=== PATIENT | female | born 1955 | race Hispanic/Latino ===

== ENCOUNTER 2017-06-13 07:11 | Day surgery (SDC) | payer OTHER ==
[2017-06-11 13:41] VITALS: BMI 18.6
[2017-06-13] MEDS ORDERED: Iohexol 240 (50 ml) ONE (07:27)
[2017-06-13] MEDS ORDERED: MethylPREDNISolone Depo 40 mg/ml Inj ONE (07:27)
[2017-06-13] MEDS ORDERED: Lidocaine Hydrochloride 10 ML INJ ONE (07:27)
[2017-06-13] MEDS ORDERED: Propofol 10 mg/ml Inj (20 ML) ONE ×2 (07:33→08:42)
[2017-06-13] MEDS: Bupivacaine HCl 0.25% PF (10 ml) Inj ONE ×2 (08:10→08:36)
[2017-06-13 13:11] VITALS: O2SAT 98
[2017-06-13 13:21] VITALS: BP 104/65; PULSE 61; RESP 18; TEMP 97.8
--- NOTE | 2017-06-13 15:01 | RAD ---
PROCEDURE: Intraoperative Fluoroscopy. HISTORY: CERVICAL SPONDYLOSIS FINDINGS: Fluoroscopic assistance was provided for RFA at the cervical spine. Please refer to the operative report from ARVIND Buchanan.
--- NOTE | 2017-06-14 08:47 | OP ---
PROCEDURE DATE: PREOPERATIVE DIAGNOSIS: Cervical spondylosis. POSTOPERATIVE DIAGNOSIS: Cervical spondylosis. PROCEDURE: 1. Cervical medial branch (facet) nerve radiofrequency thermal ablation. 2. Levels - Left-sided C3-C4, C4-C5, and C5-C6. 3. X- Ray: Fluoroscopic guidance, spine. ANESTHESIA: Local anesthesia and MAC. SURGEON: Pedro Schwartz MD COMPLICATIONS: None. BLOOD LOSS: 2 mL. INDICATION: On physical exam, the pain was made worse by side bending toward the affected side or extending the spine (backward bending). A medial branch diagnostic injection reveals that the pain at least partially originates in the facet joints or its nerves, and that the radiofrequency procedure can reasonably be expected to provide long-term relief. The pain continues to adversely affect quality of life and activities of daily living. TECHNIQUE: After comprehensive informed consent was obtained, the risks of the procedure explained and questions answered. With the patient positioned prone on the fluoroscopy table, the skin was prepped in sterile fashion with chlorhexidine. Strict aseptic technique was used. The fluoroscope was angled obliquely about 15 degrees in the sagittal plane and 5 degrees laterally. 1% lidocaine was used for skin and deep tissue anesthesia. A 22-gauge, 100-mm insulated radiofrequency needle with 5-mm exposed tip was inserted and directed ventro-medially to position the active tip adjacent to the right and then the left cervial articular pillar, in contact with bone midway between the zygapophyseal joints above and below. The patient experienced no paresthesia during needle placement. A radiofrequency lesion generator was used for electrical stimulation and lesion creation. In the final needle position, sensory stimulation at 50 Hz, 1 millisecond pulse duration recreated the patient's neck pain at a threshold of less than 1 V without causing arm pain. Motor stimulation at 2 Hz, 1 millisecond pulse duration failed to recruit the ventral root (arm movement) at up to 2 V. Erector spinae muscle stimulation was detected at 1 V at all levels. On lateral fluoroscopy, the needle tip was seen to be posterior to the neural foramen. After negative aspiration for blood and CSF, 1 mL of 1% lidocaine was injected prior to thermal lesioning. A lesion was made for 60 seconds at 60 degrees Celsius. The procedure was repeated in the same fashion at the other vertebral levels. Following the procedure, neurological function of the arms was at baseline. DISPOSITION: Following the procedure, neurological function of the arms was at baseline. The patient recovered uneventfully, and the patient was discharged in stable condition. Pedro Schwartz MD
== END 2017-06-13 10:04 | disposition home or self-care (01) ==
LOC: C.SDS 07:11
PROVIDERS: ATTEND Anesthesiology Pain Medicine
DX: M47.812 Spondylosis without myelopathy or radiculopathy, cervical region (principal); M47.817 Spondylosis without myelopathy or radiculopathy, lumbosacral region
CPT/HCPCS: 64633; 64634; J2704